=== PATIENT | female | born 1980 | race Caucasian/White ===

== ENCOUNTER 2018-09-14 00:43 | Emergency (ER) | payer SELFPAY ==
[~2018-09-14] VITALS: Ht 154.9 cm; Wt 61.2 kg
[2018-09-14 01:46] LABS: BILIRUBIN,URINE NEGATIVE (NEGATIVE); CLARITY,URINE SLIGHTLY CLOUDY; COLOR,URINE YELLOW; GLUCOSE, URINE (UA) NEGATIVE (NEGATIVE); KETONES,URINE NEGATIVE (NEGATIVE); LEUKOCYTE ESTERASE ,URINE 1+ (NEGATIVE); NITRITE,URINE NEGATIVE (NEGATIVE); PH,URINE 6.5 (5-9); PROTEIN,URINE 2+ (NEGATIVE); UROBILINOGEN,URINE NORMAL (NORMAL)
[2018-09-14 01:55] LABS: RBC,URINE >100 /HPF; WBC,URINE 0-2 /HPF
[2018-09-14 01:56] LABS: BACTERIA,URINE FEW /HPF
[2018-09-14] MEDS ORDERED: ONDANSETRON 4 MG/2 ML (SDV) Z0FRAN IVP ONE (02:15)
[2018-09-14] MEDS ORDERED: fentaNYL INJECTION 100 MCG/2 ML AMP IVP ONE (02:15)
[2018-09-14 02:34] LABS: BASOPHILS % (AUTO) 0 % (0-10); EOSINOPHILS % (AUTO) 0 % (0-10); HEMATOCRIT 32 % (35-52); HEMOGLOBIN 10.1 G/DL (11.5-16.0); LYMPHOCYTES # (AUTO) 0.8 X 10^3 (1.0-4.0); LYMPHOCYTES % (AUTO) 7 % (12-44); MEAN CORPUSCULAR HEMOGLOBIN 24 PG (25-34); MEAN CORPUSCULAR HGB CONC 32 G/DL (32-36); MEAN CORPUSCULAR VOLUME 76 FL (80-99); MEAN PLATELET VOLUME 10.3 FL (7.4-10.4); MONOCYTES # (AUTO) 0.4 X 10^3 (0.0-1.0); MONOCYTES % (AUTO) 4 % (0-12); NEUTROPHILS # (AUTO) 9.7 X 10^3 (1.8-7.8); NEUTROPHILS % (AUTO) 89 % (42-75); PLATELET COUNT 356 10^3/uL (130-400); RED CELL DISTRIBUTION WIDTH 17.4 % (10.0-14.5); WHITE BLOOD COUNT 10.9 10^3/uL (4.3-11.0)
[2018-09-14 02:51] LABS: ALANINE AMINOTRANSFERASE 25 U/L (0-55); ALBUMIN 4.2 GM/DL (3.2-4.5); ALKALINE PHOSPHATASE 90 U/L (40-136); BILIRUBIN,TOTAL 0.3 MG/DL (0.1-1.0); BUN/CREATININE RATIO 19; CALCIUM 9.4 MG/DL (8.5-10.1); CARBON DIOXIDE 22 MMOL/L (21-32); CHLORIDE 104 MMOL/L (98-107); GFR ESTIMATED > 60; GLUCOSE 122 MG/DL (70-105); LIPASE 15 U/L (8-78); POTASSIUM 3.7 MMOL/L (3.6-5.0); SODIUM 137 MMOL/L (135-145); TOTAL PROTEIN 7.7 GM/DL (6.4-8.2)
[2018-09-14 03:00] VITALS: BP 121/79
[2018-09-14] MEDS ORDERED: HOLD METFORMIN - RECEIVED CONTRAST 20 ML VIAL IV SCH (04:30)
[2018-09-14] MEDS ORDERED: IOHEXOL 350 MG/ML 100 ML (OMNIPAQUE 350) VIAL IV ONE (04:30)
[2018-09-14] MEDS ORDERED: NS 100 ML (IVPB) BAG IV ONE (04:30)
[2018-09-14 05:00] VITALS: BP 127/84
[2018-09-14 05:37] LABS: ANISOCYTOSIS SLIGHT; HYPOCHROMASIA MODERATE; LYMPHOCYTES % (MANUAL) 7 %; MICROCYTOSIS MODERATE; MONOCYTES % (MANUAL) 5 %; NEUTROPHILS % (MANUAL) 88 %
--- NOTE | 2018-09-14 06:12 | ED Abdominal Pain ---
General Chief Complaint: Abdominal/GI Problems Stated Complaint: ABD PAIN & BACK PAIN Nursing Triage Note: C/O GENERALIZED ABDOMINAL PAIN RADIATING TO LOWER BACK SINCE 1600 09/13/18. REPORTS NAUSEA AFTER DRINKING TEA. DENIES DIARRHEA/CONSTIPATION/DIFFICULTY WITH URINATION. Sepsis Screen: No Definite Risk Source of Information: Patient, Family, Try On Baster Exam Limitations: Language Barrier History of Present Illness Date Seen by Provider: Sep 14, 2018 Time Seen by Provider: 01:38 Initial Comments This 38-year-old woman presents to emergency room with complaints of nausea, vomiting, difficulty urinating, upper abdominal pain radiating through to the back, and bloating. Symptoms started at 16:00. She has had other intermittent episodes with lesser severity. Her first episode was about 3 months ago. LMP was a few days ago. She is accompanied by family members including a nephew who is bilingual. The language line was used for the majority of the interview. She denies drug or alcohol use Allergies and Home Medications Allergies Coded Allergies: No Known Drug Allergies (Unverified , 09/14/18) Home Medications Hydrocodone Bit/Acetaminophen 1 Tab Tab, 1 EACH PO Q4-6HR PRN for PAIN-MODERATE Prescribed by: LORENA LAMAS on 09/14/18 0614 Omeprazole 20 Mg Capsule.dr, 20 MG PO BID Prescribed by: LORENA LAMAS on 09/14/18 0614 Ondansetron 4 Mg Tab.rapdis, 4 MG SL Q4H PRN for NAUSEA/VOMITING Prescribed by: LORENA LAMAS on 09/14/18 0614 Patient Home Medication List Home Medication List Reviewed: Yes Review of Systems Review of Systems Constitutional: no symptoms reported EENTM: No Symptoms Reported Respiratory: No Symptoms Reported Cardiovascular: No Symptoms Reported Gastrointestinal: See HPI Genitourinary: See HPI Musculoskeletal: no symptoms reported Skin: no symptoms reported Psychiatric/Neurological: No Symptoms Reported Endocrine: No Symptoms Reported Hematologic/Lymphatic: No Symptoms Reported Past Vqolnof-Zbquca-Slaqzx Hx Past Med/Social Hx: Reviewed Nursing Past Med/Soc Hx Patient Social History Alcohol Use: Denies Use Recreational Drug Use: No Smoking Status: Never a Smoker 2nd Hand Smoke Exposure: Yes Recent Foreign Travel: No Contact w/Someone Who Travel: No Recent Infectious Disease Expo: No Recent Hopitalizations: No Immunizations Up To Date Tetanus Booster (TDap): Unknown Seasonal Allergies Seasonal Allergies: No Past Medical History Surgeries: No Respiratory: No Cardiac: No Neurological: No : No Last Menstrual Period: Sep 10, 2018 Reproductive Disorders: No Genitourinary: No Gastrointestinal: No Musculoskeletal: No Endocrine: No HEENT: No Cancer: No Psychosocial: No Integumentary: No Blood Disorders: No Physical Exam Vital Signs Vital Signs - First Documented 09/14/18 01:11 Temp 98.8 Pulse 79 Resp 18 B/P (MAP) 125/83 (97) Pulse Ox 98 O2 Delivery Room Air Capillary Refill : Less Than 3 Seconds Height/Weight/BMI Height: 5'1.00" Weight: 135lbs. oz. 61.180136dg; BMI Method:Stated General Appearance: WD/WN, moderate distress HEENT: PERRL/EOMI, normal ENT inspection, pharynx normal Neck: normal inspection Respiratory: lungs clear, normal breath sounds, no respiratory distress, no accessory muscle use Cardiovascular: regular rate, rhythm, no edema, no murmur Gastrointestinal: normal bowel sounds, soft; No distended; tenderness (Across the upper abdomen) Extremities: normal inspection, no pedal edema Back: normal inspection, no CVA tenderness Neurologic/Psychiatric: household personal assistant II-XII nml as tested, no motor/sensory deficits, alert, normal mood/affect, oriented x 3 Skin: normal color, warm/dry Progress/Results/Core Measures Results/Orders Lab Results Laboratory Tests Test 09/14/18 01:20 09/14/18 02:25 Range/Units Urine Color YELLOW Urine Clarity SLIGHTLY CLOUDY Urine pH 6.5 5-9 Urine Specific [place] 1.020 1.016-1.022 Urine Protein 2+ H NEGATIVE Urine Glucose (UA) NEGATIVE NEGATIVE Urine Ketones NEGATIVE NEGATIVE Urine Nitrite NEGATIVE NEGATIVE Urine Bilirubin NEGATIVE NEGATIVE Urine Urobilinogen NORMAL NORMAL MG/DL Urine Leukocyte Esterase 1+ H NEGATIVE Urine RBC (Auto) 5+ H NEGATIVE Urine RBC >100 H /HPF Urine WBC 0-2 /HPF Urine Squamous Epithelial Cells 5-10 /HPF Urine Crystals NONE /LPF Urine Bacteria FEW H /HPF Urine Casts NONE /LPF Urine Mucus NEGATIVE /LPF Urine Culture Indicated NO White Blood Count 10.9 4.3-11.0 10^3/uL Red Blood Count 4.21 L 4.35-5.85 10^6/uL Hemoglobin 10.1 L 11.5-16.0 G/DL Hematocrit 32 L 35-52 % Mean Corpuscular Volume 76 L 80-99 FL Mean Corpuscular Hemoglobin 24 L 25-34 PG Mean Corpuscular Hemoglobin Concent 32 32-36 G/DL Red Cell Distribution Width 17.4 H 10.0-14.5 % Platelet Count 356 130-400 10^3/uL Mean Platelet Volume 10.3 7.4-10.4 FL Neutrophils (%) (Auto) 89 H 42-75 % Lymphocytes (%) (Auto) 7 L 12-44 % Monocytes (%) (Auto) 4 0-12 % Eosinophils (%) (Auto) 0 0-10 % Basophils (%) (Auto) 0 0-10 % Neutrophils # (Auto) 9.7 H 1.8-7.8 X 10^3 Lymphocytes # (Auto) 0.8 L 1.0-4.0 X 10^3 Monocytes # (Auto) 0.4 0.0-1.0 X 10^3 Eosinophils # (Auto) 0.0 0.0-0.3 10^3/uL Basophils # (Auto) 0.0 0.0-0.1 10^3/uL Neutrophils % (Manual) 88 % Lymphocytes % (Manual) 7 % Monocytes % (Manual) 5 % Hypochromasia MODERATE Anisocytosis SLIGHT Microcytosis MODERATE Sodium Level 137 135-145 MMOL/L Potassium Level 3.7 3.6-5.0 MMOL/L Chloride Level 104 98-107 MMOL/L Carbon Dioxide Level 22 21-32 MMOL/L Anion Gap 11 5-14 MMOL/L Blood Urea Nitrogen 13 7-18 MG/DL Creatinine 0.70 0.60-1.30 MG/DL Estimat Glomerular Filtration Rate > 60 BUN/Creatinine Ratio 19 Glucose Level 122 H 70-105 MG/DL Calcium Level 9.4 8.5-10.1 MG/DL Corrected Calcium 9.2 8.5-10.1 MG/DL Total Bilirubin 0.3 0.1-1.0 MG/DL Aspartate Amino Transf (AST/SGOT) 22 5-34 U/L Alanine Aminotransferase (ALT/SGPT) 25 0-55 U/L Alkaline Phosphatase 90 40-136 U/L Total Protein 7.7 6.4-8.2 GM/DL Albumin 4.2 3.2-4.5 GM/DL Lipase 15 8-78 U/L Serum Test, Qualitative NEGATIVE NEGATIVE My Orders Orders - LORENA POWER MD Ua Culture If Indicated (09/14/18 01:40) Cbc With Automated Diff (09/14/18 02:14) Comprehensive Metabolic Panel (09/14/18 02:14) Lipase (09/14/18 02:14) Ed Iv/Invasive Line Start (09/14/18 02:14) Fentanyl Injection (Sublimaze Injection (09/14/18 02:15) Ondansetron Injection (Zofran Injectio (09/14/18 02:15) Manual Differential (09/14/18 02:25) Hcg,Qualitative Serum (09/14/18 03:10) Ct Abdomen/Pelvis W (09/14/18 03:11) Iohexol Injection (Omnipaque 350 Mg/Ml 1 (09/14/18 04:30) Received Contrast (Hold Metformin- Contr (09/14/18 04:30) Ns (Ivpb) (Sodium Chloride 0.9% Ivpb Bag (09/14/18 04:30) Medications Given in ED Vital Signs/I&O 09/14/18 09/14/18 09/14/18 09/14/18 01:11 03:00 05:00 06:21 Temp 98.8 97.8 Pulse 79 68 61 75 Resp 18 16 18 18 B/P (MAP) 125/83 (97) 121/79 (93) 127/84 (98) 115/74 (88) Pulse Ox 98 99 100 97 O2 Delivery Room Air Room Air Room Air Room Air Blood Pressure Mean: 98 Progress Progress Note : Progress Note Patient's pain and nausea was treated successfully. CT scan was obtained with finding of a complex right renal mass suspicious for renal cell carcinoma. Case was discussed with Dr. Townsend who recommended prompt follow-up in the clinic and referral to [facility] for primary care as well. I obtained from #from patient's family which are as follows [phone] and [phone]. Diagnostic Imaging Diagonstic Imaging: CT Plain Films/CT/US/NM/MRI: abdomen, pelvis Comments CT abdomen and pelvis viewed by me. [facility] report reviewed. There is a complex solid mass of the right kidney suspicious for renal cell carcinoma. Departure Impression Primary Impression: Upper abdominal pain Additional Impressions: Nausea and vomiting Qualified Codes: R11.2 - Nausea with vomiting, unspecified Right kidney mass Disposition: 01 HOME, SELF-CARE Condition: Improved Departure-Patient Inst. Decision time for Depature: 05:30 Referrals: [facility] [place] TEJAS TOWNSEND NO,LOCAL PHYSICIAN (PCP) Primary Care Physician Patient Instructions: Acute Abdomen (Belly Pain), Adult (DC), Kidney Cancer Add. Discharge Instructions: Start with a clear liquid diet and gradually advance your diet as tolerated. Follow-up with Dr. Townsend at the [facility] as soon as possible. Please call early Sunday morning to arrange follow-up. Please also schedule follow-up with [place] [facility] [place] [facility] [place]. Use hydrocodone as prescribed for pain and use Zofran as prescribed for nausea and vomiting. Return to the emergency room if you have problems or concerns All discharge instructions reviewed with patient and/or family. Voiced understanding. Scripts Omeprazole (Omeprazole) 20 Mg Capsule.dr 20 MG PO BID, #30 CAP Prov: LORENA POWER MD 09/14/18 Ondansetron (Ondansetron Odt) 4 Mg Tab.rapdis 4 MG SL Q4H PRN for NAUSEA/VOMITING, #10 TAB Prov: LORENA POWER MD 09/14/18 Hydrocodone Bit/Acetaminophen (Hydrocodone/Acetaminophen 5/325mg Tablet) 1 Tab Tab 1 EACH PO Q4-6HR PRN for PAIN-MODERATE MDD 10, #10 TAB Prov: LORENA POWER MD 09/14/18 Copy Copies To 1: TEJAS TOWNSEND Copies To 2: MAGALIS GARCES JOSHUA T MD Sep 14, 2018 06:12
[2018-09-14] MEDS ORDERED: ACHD5005 PO (06:14)
[2018-09-14] MEDS ORDERED: OMEP20CA12 PO (06:14)
[2018-09-14] MEDS ORDERED: ONDA4TAB11 SL (06:14)
[2018-09-14 06:21] VITALS: BP 115/74
--- NOTE | 2018-09-14 06:50 | Diagnostic Imaging Report ---
PROCEDURE: CT abdomen and pelvis with contrast. TECHNIQUE: Multiple contiguous axial images were obtained through the abdomen and pelvis after administration of intravenous contrast. Auto Exposure Controls were utilized during the CT exam to meet ALARA standards for radiation dose reduction. INDICATION: Abdominal pain radiating to back with nausea. No prior examinations are available for comparison. Findings: The heart size is normal. The lung bases are clear. The liver is normal in size without focal lesions. There is cholelithiasis. There is no biliary ductal dilatation. Spleen is normal. Pancreas and adrenal glands are unremarkable. There is a complex solid mass in the inferior aspect of the right kidney measuring 4 cm. The left kidney is normal. Aorta is nonaneurysmal. Bowel gas pattern is nonspecific. There is no free air. There is no ascites. No focal inflammatory changes. Bladder is normal. The osseous structures are unremarkable. Impression: 4 cm complex solid mass in the right kidney. This should be considered renal cell carcinoma until proven otherwise. Cholelithiasis No other acute abnormality in the abdomen or pelvis. Dictated by: Dictated on workstation # [id number]
== END 2018-09-14 06:23 | disposition home or self-care (01) ==
LOC: ER 00:48
DX: N28.89 Other specified disorders of kidney and ureter (principal); R11.2 Nausea with vomiting, unspecified; Z77.22 Contact with and (suspected) exposure to environmental tobacco smoke (acute) (chronic)
CPT/HCPCS: 36415; 74177; 80053; 81000; 83690; 84703; 85007; 85027; 96374; 96375

== ENCOUNTER 2018-09-21 23:56 | Emergency (ER) | payer SELFPAY ==
[~2018-09-21] VITALS: Ht 144.8 cm; Wt 63.5 kg
[~2018-09-21 23:56] MED LIST: ACHD5005 PO; OMEP20CA12 PO; ONDA4TAB11 SL
[2018-09-22] MEDS ORDERED: LACTATED RINGERS 1,000 ML IV ONE (01:14)
[2018-09-22] MEDS ORDERED: ONDANSETRON 4 MG/2 ML (SDV) Z0FRAN IVP ONE ×2 (01:15→03:15)
[2018-09-22 01:34] LABS: BILIRUBIN,URINE NEGATIVE (NEGATIVE); CLARITY,URINE VERY CLOUDY; COLOR,URINE YELLOW; GLUCOSE, URINE (UA) NEGATIVE (NEGATIVE); KETONES,URINE NEGATIVE (NEGATIVE); LEUKOCYTE ESTERASE ,URINE 2+ (NEGATIVE); NITRITE,URINE NEGATIVE (NEGATIVE); PH,URINE 6 (5-9); PROTEIN,URINE 1+ (NEGATIVE); UROBILINOGEN,URINE 1 MG/DL (NORMAL)
[2018-09-22 01:36] LABS: BASOPHILS % (AUTO) 0 % (0-10); EOSINOPHILS # (AUTO) 0.1 10^3/uL (0.0-0.3); EOSINOPHILS % (AUTO) 1 % (0-10); HEMATOCRIT 31 % (35-52); HEMOGLOBIN 9.9 G/DL (11.5-16.0); LYMPHOCYTES # (AUTO) 1.6 X 10^3 (1.0-4.0); LYMPHOCYTES % (AUTO) 16 % (12-44); MEAN CORPUSCULAR HEMOGLOBIN 24 PG (25-34); MEAN CORPUSCULAR HGB CONC 32 G/DL (32-36); MEAN CORPUSCULAR VOLUME 76 FL (80-99); MEAN PLATELET VOLUME 10.6 FL (7.4-10.4); MONOCYTES # (AUTO) 0.9 X 10^3 (0.0-1.0); MONOCYTES % (AUTO) 9 % (0-12); NEUTROPHILS # (AUTO) 7.1 X 10^3 (1.8-7.8); NEUTROPHILS % (AUTO) 73 % (42-75); PLATELET COUNT 291 10^3/uL (130-400); RED CELL DISTRIBUTION WIDTH 16.9 % (10.0-14.5); WHITE BLOOD COUNT 9.7 10^3/uL (4.3-11.0)
[2018-09-22 01:48] LABS: BACTERIA,URINE TRACE /HPF; SQUAMOUS EPITHELIAL CELL,UR 25-50 /HPF; WBC,URINE 0-2 /HPF
[2018-09-22 02:01] LABS: ALANINE AMINOTRANSFERASE 20 U/L (0-55); ALBUMIN 4.1 GM/DL (3.2-4.5); ALKALINE PHOSPHATASE 87 U/L (40-136); AMYLASE 54 U/L (25-125); BILIRUBIN,TOTAL 0.2 MG/DL (0.1-1.0); BUN/CREATININE RATIO 22; CALCIUM 9.2 MG/DL (8.5-10.1); CARBON DIOXIDE 20 MMOL/L (21-32); CHLORIDE 106 MMOL/L (98-107); CREATININE SERUM 0.73 MG/DL (0.60-1.30); GFR ESTIMATED > 60; GLUCOSE 126 MG/DL (70-105); LIPASE 29 U/L (8-78); POTASSIUM 3.7 MMOL/L (3.6-5.0); SODIUM 137 MMOL/L (135-145); TOTAL PROTEIN 7.5 GM/DL (6.4-8.2)
[2018-09-22] MEDS ORDERED: KETOROLAC 30 MG/ML VIAL IVP STA (02:04)
[2018-09-22] MEDS ORDERED: NS IV 1000 ML 1,000 ML ONE (03:09)
[2018-09-22] MEDS ORDERED: NS IV 1000 ML 1,000 ML IV ONE (03:14)
[2018-09-22] MEDS ORDERED: PROMETHAZINE INJ 25 MG/ML (PHENERGAN) AMP IVP ONE ×2 (03:15→03:45)
[2018-09-22] MEDS ORDERED: diphenhydrAMINE 50 MG/ML INJ (BENADRYL) IVP ONE (03:15)
[2018-09-22] MEDS ORDERED: SCOPOLAMINE 1.5 MG (TRANSDERM-SCOP) PATCH TD ONE (03:45)
--- NOTE | 2018-09-22 03:50 | NUR ---
Scapolamine patch placed behind lt ear.
[2018-09-22] MEDS ORDERED: RX-ONDANSETRON 4 MG ODT (ZOFRAN) PPK #4 PO STA (04:17)
[2018-09-22] MEDS ORDERED: RX-HYOSCYAMINE 0.125 MG SL (LEVSIN) PPK#6 SL STA (04:17)
--- NOTE | 2018-09-22 04:25 | ED Abdominal Pain ---
General Chief Complaint: Abdominal/GI Problems Stated Complaint: KIDNEY PAIN Nursing Triage Note: ABDOMINAL THAT STARTED AT 2100 AND HAS INCREASINGLY GOTTEN WORSE. Sepsis Screen: No Definite Risk Source of Information: Patient (VIA NURSING SURGICAL SERVICES DIRECTOR), Radiochemical Technician (FAMILY MEMBER IS NURSING SURGICAL SERVICES DIRECTOR) Exam Limitations: Language Barrier (PT DOES NOT SPEAK [place]) History of Present Illness Date Seen by Provider: Sep 22, 2018 Time Seen by Provider: 01:15 Initial Comments PT ARRIVES VIA POV FROM HOME C/O GENERALIZED ABDOMINAL PAIN THAT GOES AROUND TO HER BACK--ALL OVER HER BACK PT STATES PAIN BEGAN AT 2100 TONIGHT AND IS CONSTANT C/O NAUSEA, NO VOMITING--ATE CAKE AND MILK TODAY NO DIARRHEA, HAD A NORMAL BM TODAY NO FEVER NO PROBLEMS URINATING HAS HAD THIS PAIN OFF AND ON FOR THE PAST FEW MONTHS, , AND WAS SEEN HERE 09/14/18 FOR THIS SAME PROBLEM--WAS DX WITH RENAL MASS, GIVEN RX'S FOR ZOFRAN, OMEPRAZOLE AND HYDROCODONE, AND WAS REFERRED TO DR. HAUSER FOLLOWED UP WITH [facility], BUT NO ADDITIONAL TESTS DONE HAS NOT ATTEMPTED TO FOLLOW UP WITH DR. HAUSER ADVISED AT LAST ER VISIT LMP 2 WEEKS AGO, NORMAL, NO CONTROL Allergies and Home Medications Allergies Coded Allergies: No Known Drug Allergies (Unverified , 09/14/18) Home Medications Dicyclomine HCl 20 Mg Tablet, 20 MG PO Q6H Prescribed by: TAJ WOODSON on 09/22/18427 Hydrocodone Bit/Acetaminophen 1 Tab Tab, 1 EACH PO Q4-6HR PRN for PAIN-MODERATE Prescribed by: LORENA LAMAS on 09/14/18613 Hyoscyamine Sulfate 0.125 Mg Tab.subl, 1-2 TAB SL Q4H Prescribed by: TAJ WOODSON on 09/22/18427 Omeprazole 20 Mg Capsule.dr, 20 MG PO BID Prescribed by: LORENA LAMAS on 09/14/18613 Ondansetron 4 Mg Tab.rapdis, 4 MG SL Q4H PRN for NAUSEA/VOMITING Prescribed by: LORENA LAMAS on 09/14/18613 Ondansetron 8 Mg Tab.rapdis, 8 MG PO Q6H Prescribed by: TAJ WOODSON on 09/22/18427 Promethazine HCl 25 Mg Supp.rect, 25 MG RC Q4H Prescribed by: TAJ WOODSON on 09/22/18 0428 Patient Home Medication List Home Medication List Reviewed: Yes Review of Systems Review of Systems Constitutional: No fever Respiratory: No Symptoms Reported; Denies Shortness of Air Cardiovascular: No Symptoms Reported; Denies Chest Pain Gastrointestinal: See HPI, Abdominal Pain; Denies Constipated, Denies Diarrhea; Nausea Genitourinary: No Symptoms Reported Musculoskeletal: see HPI, back pain Skin: no symptoms reported Psychiatric/Neurological: No Symptoms Reported Endocrine: No Symptoms Reported Hematologic/Lymphatic: No Symptoms Reported Past Hbcmlxx-Ozfqed-Onvkak Hx Patient Social History Alcohol Use: Denies Use Recreational Drug Use: No Smoking Status: Never a Smoker 2nd Hand Smoke Exposure: Yes Recent Foreign Travel: No Contact w/Someone Who Travel: No Recent Infectious Disease Expo: No Recent Hopitalizations: No Physical Abuse: No Sexual Abuse: No Mistreated: No Fear: No Immunizations Up To Date Tetanus Booster (TDap): Unknown Seasonal Allergies Seasonal Allergies: No Past Medical History Surgeries: No Respiratory: No Cardiac: No Neurological: No : No Reproductive Disorders: No Genitourinary: Yes (RIGHT RENAL MASS NOTED ON CT 09/14/18) Gastrointestinal: Yes (GALLSTONES NOTED ON CT 09/22/18) Musculoskeletal: No Endocrine: No HEENT: No Cancer: No Psychosocial: No Integumentary: No Blood Disorders: No Family Medical History Hypertension 19 FATHER Physical Exam Vital Signs Vital Signs - First Documented 09/22/18 01:32 Temp 97.2 Pulse 109 Resp 18 B/P (MAP) 141/80 (100) Pulse Ox 99 O2 Delivery Room Air Capillary Refill : Less Than 3 Seconds Height/Weight/BMI Height: 4'9.00" Weight: 140lbs. oz. 63.749873ih; BMI Method:Stated General Appearance: WD/WN, other (DRAMATIC, MOANING, DOES NOT OPEN EYES. ) Respiratory: normal breath sounds, no respiratory distress, no accessory muscle use Cardiovascular: regular rate, rhythm, no murmur Gastrointestinal: normal bowel sounds, soft, no organomegaly, no pulsatile mass; No distended, No guarding, No rebound; tenderness (DIFFUSE ABDOMINAL TENDERNESS); No hernia, No mass Extremities: normal inspection, no pedal edema, no calf tenderness, normal capillary refill Back: no vertebral tenderness, CVA tenderness (R), CVA tenderness (L) Neurologic/Psychiatric: inside upholsterer II-XII nml as tested, no motor/sensory deficits, alert, oriented x 3 Skin: normal color, warm/dry; No rash Progress/Results/Core Measures Results/Orders Lab Results Laboratory Tests Test 09/22/18 01:21 09/22/18 01:26 Range/Units White Blood Count 9.7 4.3-11.0 10^3/uL Red Blood Count 4.12 L 4.35-5.85 10^6/uL Hemoglobin 9.9 L 11.5-16.0 G/DL Hematocrit 31 L 35-52 % Mean Corpuscular Volume 76 L 80-99 FL Mean Corpuscular Hemoglobin 24 L 25-34 PG Mean Corpuscular Hemoglobin Concent 32 32-36 G/DL Red Cell Distribution Width 16.9 H 10.0-14.5 % Platelet Count 291 130-400 10^3/uL Mean Platelet Volume 10.6 H 7.4-10.4 FL Neutrophils (%) (Auto) 73 42-75 % Lymphocytes (%) (Auto) 16 12-44 % Monocytes (%) (Auto) 9 0-12 % Eosinophils (%) (Auto) 1 0-10 % Basophils (%) (Auto) 0 0-10 % Neutrophils # (Auto) 7.1 1.8-7.8 X 10^3 Lymphocytes # (Auto) 1.6 1.0-4.0 X 10^3 Monocytes # (Auto) 0.9 0.0-1.0 X 10^3 Eosinophils # (Auto) 0.1 0.0-0.3 10^3/uL Basophils # (Auto) 0.0 0.0-0.1 10^3/uL Sodium Level 137 135-145 MMOL/L Potassium Level 3.7 3.6-5.0 MMOL/L Chloride Level 106 98-107 MMOL/L Carbon Dioxide Level 20 L 21-32 MMOL/L Anion Gap 11 5-14 MMOL/L Blood Urea Nitrogen 16 7-18 MG/DL Creatinine 0.73 0.60-1.30 MG/DL Estimat Glomerular Filtration Rate > 60 BUN/Creatinine Ratio 22 Glucose Level 126 H 70-105 MG/DL Calcium Level 9.2 8.5-10.1 MG/DL Corrected Calcium 9.1 8.5-10.1 MG/DL Total Bilirubin 0.2 0.1-1.0 MG/DL Aspartate Amino Transf (AST/SGOT) 16 5-34 U/L Alanine Aminotransferase (ALT/SGPT) 20 0-55 U/L Alkaline Phosphatase 87 40-136 U/L Total Protein 7.5 6.4-8.2 GM/DL Albumin 4.1 3.2-4.5 GM/DL Amylase Level 54 25-125 U/L Lipase 29 8-78 U/L Serum Test, Qualitative NEGATIVE NEGATIVE Urine Color YELLOW Urine Clarity VERY CLOUDY H Urine pH 6 5-9 Urine Specific [place] 1.025 H 1.016-1.022 Urine Protein 1+ H NEGATIVE Urine Glucose (UA) NEGATIVE NEGATIVE Urine Ketones NEGATIVE NEGATIVE Urine Nitrite NEGATIVE NEGATIVE Urine Bilirubin NEGATIVE NEGATIVE Urine Urobilinogen 1 NORMAL MG/DL Urine Leukocyte Esterase 2+ H NEGATIVE Urine RBC (Auto) NEGATIVE NEGATIVE Urine RBC NONE /HPF Urine WBC 0-2 /HPF Urine Squamous Epithelial Cells 25-50 H /HPF Urine Crystals NONE /LPF Urine Bacteria TRACE /HPF Urine Casts NONE /LPF Urine Mucus SMALL H /LPF Urine Culture Indicated NO My Orders Orders - TAJ WOODSON DO Ed Iv/Invasive Line Start (09/22/18 01:14) Monitor-Rhythm Ecg Trace Only (09/22/18 01:14) Amylase (09/22/18 01:14) Cbc With Automated Diff (09/22/18 01:14) Comprehensive Metabolic Panel (09/22/18 01:14) Hcg,Qualitative Serum (09/22/18 01:14) Lipase (09/22/18 01:14) Ua Culture If Indicated (09/22/18 01:14) Ed Iv/Invasive Line Start (09/22/18 01:14) Lactated Ringers (Lr 1000 Ml Iv Solution (09/22/18 01:14) Ondansetron Injection (Zofran Injectio (09/22/18 01:15) Ct Abdomen/Pelvis W (09/22/18 02:04) Acute Abd Series (09/22/18 02:04) Ketorolac Injection (Toradol Injection) (09/22/18 02:04) Ondansetron Injection (Zofran Injectio (09/22/18 03:15) Promethazine Injection (Phenergan Injec (09/22/18 03:15) Diphenhydramine Injection (Benadryl Inje (09/22/18 03:15) Ed Iv/Invasive Line Start (09/22/18 03:14) Ns Iv 1000 Ml (Sodium Chloride 0.9%) (09/22/18 03:14) Ns Iv 1000 Ml (Sodium Chloride 0.9%) (09/22/18 03:09) Promethazine Injection (Phenergan Injec (09/22/18 03:45) Scopolamine Patch (Transderm-Scop Patch) (09/22/18 03:45) Hyoscyamine Sl Tablet (Levsin Sl Tablet) (09/22/18 04:30) Dicyclomine Injection (Bentyl Injection) (09/22/18 04:30) Rx-Hyoscyamine Tab (Rx-Levsin Sl) (09/22/18 04:17) Rx-Ondansetron Po (Rx-Zofran Po) (09/22/18 04:17) Medications Given in ED Current Medications Medications Dose Ordered Sig/Alana Route Start Time Stop Time Status Last Admin Dose Admin Diphenhydramine HCl 25 mg ONCE ONCE IVP 09/22/18 03:15 09/22/18 03:16 DC 09/22/18 03:22 25 MG Lactated Ringer's 1,000 ml @ 0 mls/hr Q0M ONCE IV 09/22/18 01:14 09/22/18 01:17 DC 09/22/18 01:29 999 MLS/HR Ondansetron HCl 4 mg ONCE ONCE IVP 09/22/18 01:15 09/22/18 01:17 DC 09/22/18 01:29 4 MG Ondansetron HCl 8 mg ONCE ONCE IVP 09/22/18 03:15 09/22/18 03:16 DC 09/22/18 03:22 8 MG Promethazine HCl 25 mg ONCE ONCE IVP 09/22/18 03:15 09/22/18 03:16 DC 09/22/18 03:22 25 MG Promethazine HCl 25 mg ONCE ONCE IVP 09/22/18 03:45 09/22/18 03:46 DC 09/22/18 03:50 25 MG Scopolamine 1.5 mg ONCE ONCE TD 09/22/18 03:45 09/22/18 03:46 DC 09/22/18 03:50 1.5 MG Sodium Chloride 1,000 ml @ 0 mls/hr Q0M ONCE IV 09/22/18 03:14 09/22/18 03:16 DC 09/22/18 03:22 0 MLS/HR Vital Signs/I&O 09/22/18 01:32 Temp 97.2 Pulse 109 Resp 18 B/P (MAP) 141/80 (100) Pulse Ox 99 O2 Delivery Room Air Blood Pressure Mean: 100 Progress Progress Note : Progress Note PT VOMITED ON RETURN FROM XRAY DEPT--GIVEN ZOFRAN, SCOPOLAMINE, PHENERGAN AND BENADRYL--NAUSEA IMPROVED AND NO FURTHER VOMITING GIVEN TORADOL, LEVSIN AND BENTYL FOR PAIN, WITH IMPROVEMENT IN SYMPTOMS NO DETERIORATION IN PT'S CONDITION DURING ER STAY Diagnostic Imaging Comments ABDOMEN XRAYS--MODERATE AMOUNT OF STOOL IN COLON, PENDING RADIOLOGIST REVIEW CT ABDOMEN/PELVIS--CHOLELITHIASIS, RIGHT RENAL MASS UNCHANGED, NO ACUTE PROCESS--PER [facility] VIA FAX AT 8080 Reviewed: Reviewed by Me Departure Impression Primary Impression: Abdominal pain Additional Impressions: Cholelithiasis Right renal mass Disposition: HOME, SELF-CARE Condition: Improved Departure-Patient Inst. Referrals: TEREZA TRINH MD,HUSSEIN ALEMAN MD [facility] [place] Patient Instructions: Acute Abdomen (Belly Pain), Adult (DC), Gallstones (DC), Kidney Cancer Add. Discharge Instructions: TAKE OMEPRAZOLE DAILY FOR YOUR STOMACH TAKE HYDROCODONE NEEDED FOR PAIN LOTS OF CLEAR LIQUIDS--WATER, BROTH, JELLO, GATORADE---NO FOOD UNTIL YOUR NAUSEA AND PAIN ARE GONE WHEN YOU ARE FEELING BETTER, ADD BRATS DIET TO CLEAR LIQUIDS--BANANAS, RICE, APPLESAUCE, TOAST, SALTINES FOLLOW UP WITH DR. HAUSER, ONCOLOGIST ( CANCER DOCTOR, FOR SUSPECTED CANCER OF YOUR KIDNEY FOLLOW UP WITH DR. MAC, UROLOGIST (BLADDER AND KIDNEY SPECIALIST AND SURGEON ) , FOR SUSPECTED CANCER OF YOUR KIDNEY FOLLOW UP WITH DR. TRINH, GENERAL SURGEON, FOR YOUR GALLSTONES / STONES IN YOUR GALLBLADDER All discharge instructions reviewed with patient and/or family. Voiced understanding. Scripts Ondansetron (Ondansetron Odt) 8 Mg Tab.rapdis 8 MG PO Q6H for Nausea/Vomiting, #10 TAB Prov: TAJ WOODSON DO 09/22/18 Promethazine HCl (Phenergan) 25 Mg Supp.rect 25 MG RC Q4H for Nausea/Vomiting, #10 SUPP.RECT Prov: TAJ WOODSON DO 09/22/18 Hyoscyamine Sulfate (Levsin-Sl) 0.125 Mg Tab.subl 1-2 TAB SL Q4H for Abdominal Pain, #15 TAB Prov: TAJ WOODSON DO 09/22/18 Dicyclomine HCl (Dicyclomine HCl) 20 Mg Tablet 20 MG PO Q6H for Abdominal Pain, #20 TAB Prov: TAJ WOODSON DO 09/22/18 TAJ WOODSON DO Sep 22, 2018 04:25
[2018-09-22] MEDS ORDERED: HYOS0.1283 SL (04:28)
[2018-09-22] MEDS ORDERED: PROM25SU43 RC (04:28)
[2018-09-22] MEDS ORDERED: DICY20TA10 PO (04:28)
[2018-09-22] MEDS ORDERED: ONDA8TAB13 PO (04:28)
[2018-09-22] MEDS ORDERED: DICYCLOMINE 10 MG/ML (BENTYL) 2 ML AMP IM ONE (04:30)
[2018-09-22] MEDS ORDERED: HYOSCYAMINE 0.125 MG (LEVSIN) TAB PO ONE (04:30)
[2018-09-22 05:05] VITALS: BP 136/89
--- NOTE | 2018-09-22 05:05 | NUR ---
D/C instructions reviewed with family using son as box coverer hand. Pt and family voices no further questions or concerns @ this time.
--- NOTE | 2018-09-22 09:26 | Diagnostic Imaging Report ---
PROCEDURE: CT abdomen and pelvis with contrast. TECHNIQUE: Multiple contiguous axial images were obtained through the abdomen and pelvis after administration of intravenous contrast. Auto Exposure Controls were utilized during the CT exam to meet ALARA standards for radiation dose reduction. INDICATION: Flank pain. COMPARISON: 09/14/2018. DISCUSSION: The lung bases are well-aerated. Normal heart size. No pleural or pericardial fluid. Fatty infiltration of the liver is again noted. Cholelithiasis is present, stable. No secondary inflammatory changes identified. The stomach, pancreas, spleen, and adrenal glands are unremarkable. 4.5 x 3.3 cm mass shows diffuse enhancement within the right kidney inferiorly and is unchanged. Again this should be considered malignant. No hydronephrosis or renal stone otherwise. No adjacent adenopathy. The hepatic vein appears patent on the right. Suspect normal follicular activity within the bilateral ovaries. The uterus and urinary bladder are unremarkable. The aorta is normal in caliber. The large and small bowel loops appear within normal limits. No evidence for appendicitis. No osseous abnormality. Normal heart size. Impression: 1. Right renal mass, stable. Mass should be considered malignant. 2. Fatty infiltration of the liver and cholelithiasis, stable. No new abnormality identified. 3. Agree with preliminary report. Dictated by: Dictated on workstation # [id number]
--- NOTE | 2018-09-22 09:27 | Diagnostic Imaging Report ---
INDICATION: Abdominal pain. COMPARISON: None. DISCUSSION: AP view of the chest and supine and upright views of the abdomen were obtained. The heart and lungs are normal. No osseous abnormality or pathologic calcification. Mild constipation. No obstruction, pneumatosis, or pneumoperitoneum. IMPRESSION: 1. Mild constipation. Dictated by: Dictated on workstation # [id number]
== END 2018-09-22 05:10 | disposition home or self-care (01) ==
LOC: EDUNIT# 23:56 → ER 09-22 00:01
DX: K80.20 Calculus of gallbladder without cholecystitis without obstruction (principal); N28.89 Other specified disorders of kidney and ureter; Z77.22 Contact with and (suspected) exposure to environmental tobacco smoke (acute) (chronic); Z82.49 Family history of ischemic heart disease and other diseases of the circulatory system
CPT/HCPCS: 36415; 74022; 74177; 80053; 81000; 82150; 83690; 84703; 85025; 93041

== ENCOUNTER 2020-11-04 09:28 | Outpatient (RCR) | payer BC, OTHER ==
[~2020-11-04 09:28] MED LIST changes: +DICY20TA PO; +HYOS0.1283 SL; -OMEP20CA12 PO; +OMEP20CA18 PO; +ONDA8TAB13 PO; +PROM25SU43 RC
[2020-11-04 09:46] LABS: BASOPHILS % (AUTO) 0 % (0-10); EOSINOPHILS # (AUTO) 0.2 10^3/uL (0.0-0.3); EOSINOPHILS % (AUTO) 2 % (0-10); HEMATOCRIT 29 % (35-52); HEMOGLOBIN 8.2 g/dL (11.5-16.0); LYMPHOCYTES # (AUTO) 1.6 10^3/uL (1.0-4.0); LYMPHOCYTES % (AUTO) 18 % (12-44); MEAN CORPUSCULAR HEMOGLOBIN 19 pg (25-34); MEAN CORPUSCULAR HGB CONC 28 g/dL (32-36); MEAN CORPUSCULAR VOLUME 69 fL (80-99); MEAN PLATELET VOLUME 10.3 fL (9.0-12.2); MONOCYTES # (AUTO) 0.7 10^3/uL (0.0-1.0); MONOCYTES % (AUTO) 8 % (0-12); NEUTROPHILS # (AUTO) 6.6 10^3/uL (1.8-7.8); NEUTROPHILS % (AUTO) 72 % (42-75); PLATELET COUNT 366 10^3/uL (130-400); WHITE BLOOD COUNT 9.2 10^3/uL (4.3-11.0)
[2020-11-04 10:13] LABS: ALBUMIN 3.9 GM/DL (3.2-4.5); BILIRUBIN,TOTAL 0.2 MG/DL (0.1-1.0); CALCIUM 8.9 MG/DL (8.5-10.1); CREATININE SERUM 0.76 MG/DL (0.60-1.30); POTASSIUM 3.8 MMOL/L (3.6-5.0); TOTAL PROTEIN 7.3 GM/DL (6.4-8.2)
[2020-12-10] MEDS ORDERED: ASCO500C17 PO (15:00)
== END 2021-02-02 | disposition home or self-care (01) ==
LOC: ONC 09:28
PROVIDERS: ATTEND Internal Medicine Hematology & Oncology
DX: C64.1 Malignant neoplasm of right kidney, except renal pelvis (principal); D50.0 Iron deficiency anemia secondary to blood loss (chronic); Z90.5 Acquired absence of kidney
CPT/HCPCS: 80053; 85025; G0463; 99214

== ENCOUNTER → 2020-11-09 | Outpatient (CLI) | payer BC ==
[~2020-11-09] MED LIST changes: -DICY20TA PO; +DICY20TA10 PO
--- NOTE | 2020-11-09 14:18 | Diagnostic Imaging Report ---
PROCEDURE: CT abdomen and pelvis without contrast. TECHNIQUE: Multiple contiguous axial images were obtained through the abdomen and pelvis without the use of intravenous contrast. Auto Exposure Controls were utilized during the CT exam to meet ALARA standards for radiation dose reduction. INDICATION: Right lower quadrant abdominal pain. COMPARISON: Correlation is made with the prior CT from 09/22/2018. FINDINGS: The lung bases are clear. The liver is unremarkable. The gallbladder appears to be surgically absent. There is no biliary ductal dilatation. The pancreas and spleen are unremarkable. No adrenal mass is identified. The patient has undergone a right nephrectomy since the prior CT. No residual or recurrent tumor in the right renal bed is identified. The left kidney is unremarkable. The aorta is nonaneurysmal. The small and large bowel loops are of normal caliber. The appendix is unremarkable. There is no inflammatory stranding present. No free fluid or fluid collection is identified. The bladder is decompressed. The uterus is unremarkable. IMPRESSION: 1. Status post right nephrectomy. No residual or recurrent neoplasm is identified. 2. No acute feature in the abdomen or pelvis is identified. Dictated by: Dictated on workstation # [id number]
== END ==
LOC: RAD 12:45
PROVIDERS: ATTEND Urology
DX: R31.0 Gross hematuria (principal); Z90.5 Acquired absence of kidney
CPT/HCPCS: 74176

== ENCOUNTER → 2020-12-10 | Outpatient (CLI) | payer BC ==
[~2020-12-10] VITALS: Ht 144.8 cm; Wt 60.8 kg
[~2020-12-10] MED LIST changes: +ASCO500C17 PO
== END | disposition home or self-care (01) ==
LOC: PREOP 06:54
PROVIDERS: ATTEND Surgery
DX: Z01.818 Encounter for other preprocedural examination (principal)

== ENCOUNTER 2020-12-15 12:11 | Day surgery (SDC) | payer BC ==
[2020-12-15] VITALS (12 sets, daily range): BP systolic 110–146; BP diastolic 57–100
[~2020-12-15] VITALS: Ht 144.8 cm; Wt 60.8 kg
--- OUTSIDE RECORDS SUMMARY | 2020-12-15 12:14 | XMS REPORT | Clinical Summary ---
Author Author [facility] Organization [facility] Address Unknown Phone Unavailable Care Team Providers Care Brake Machine Operator Name Role Phone PCP Unavailable Allergies No Known Active Allergies Medications End Date Status Medication Sig Dispensed Refills Start Date Active HYDROcodone-acetaminophen TAKE 1 TABLET 0 07/2 0/201 (NORCO) 5-325 mg per BY MOUTH 9 tablet EVERY 4 TO 6 HOURS NEEDED FOR MODERATE PAIN Active omeprazole (PRILOSEC) 20 Take 20 mg by 0 07/20 /201 MG capsule mouth 2 (two) 9 times a day. Active ondansetron (ZOFRAN-ODT) DISSOLVE 1 0 07/20 /201 4 MG disintegrating TABLET IN 9 tablet MOUTH EVERY 4 HOURS NEEDED FOR NAUSEA AND VOMITING Active Problems Not on file Social History Date Tobacco Use Types Packs/Day Years Used Never Smoker Smokeless Tobacco: Never Used Comments Alcohol Use Standard Drinks/Week Never 0 (1 standard drink = 0.6 o z pure alcohol) Alcohol Habits Answer Date Recorded How often do you have a drink containing alcohol? Never 10/07/2018 How many drinks containing alcohol do you have on No t asked a typical day when you are drinking? How often do you have six or more drinks on one Not asked occasion? Sex Assigned at Date Recorded Not on file Last Filed Vital Signs Reading Time Taken Comments Vital Sign 123/83 10/07/2018 11:27 AM CDT Blood Pressure 85 10/07/2018 11:27 AM CDT Pulse 37 C (98.6 F) 10/07/2018 10:57 AM CDT Temperature 13 10/07/2018 11:27 AM CDT Respiratory Rate 97% 10/07/2018 11:27 AM CDT Oxygen Saturation - - Inhaled Oxygen Concentration 63.5 kg (140 lb) 10/07/2018 10:25 AM CDT Weight 144.8 cm (4' 9") 10/07/2018 10:25 AM CDT Height 30.3 10/07/2018 10:25 AM CDT Body Mass Index Plan of Treatment Health Maintenance Due Date Last Done Comments Td/Tdap# 1979 COVID-19 Vaccine (1) 1991 Cervical Cancer Screening 04/25/2000 via Pap Smear Influenza Vaccine (#1) 2020 Pneumococcal Vaccine: Aged Out No longer eligib le based on patient's age to Pediatrics (0 to 5 Years) complete this topic and At-Risk Patients (6 to 64 Years) Results Not on filefrom Last 3 Months Advance Directives For more information, please contact: [phone] Patient Vice President Biostatistics Explanation Type Date Recorded Health Care Directive
--- NOTE | 2020-12-15 12:17 | Conscious Sedation/ASA ---
Conscious Sedation Pre-Proced Time 12:00 ASA Score 2 For ASA 3 and 4: Consider anesthesia and medical clearance. Also, for patients with a history of failed moderate sedation consider anesthesia. Airway Lungs Heart ASA score ASA 1: a normal healthy patient ASA 2: a patient with a mild systemic disease (mid diabetes, controlled hypertension, obesity ASA 3: a patient with a severe systemic disease that limits activity (angina, COPD, prior Myocardial infarction) ASA 4: a patient with an incapacitating disease that is a constant threat to life (CHF, renal failure) ASA 5: a moribund patient not expected to survive 24 hrs. (ruptured aneurysm) ASA 6: a declared brain- patient whose organs are being harvested. For emergent operations, add the letter E after the classification Mallampati Classification Grade 2 Sedation Plan Analgesia, Amnesia, Plan communicated to team members, Discussed options with patient/fam, Discussed risks with patient/fam The patient is an appropriate candidate to undergo the planned procedure, sedation, and anesthesia. The patient immediately re-assessed prior to indication. TEREZA TRINH MD Dec 15, 2020 12:17
--- NOTE | 2020-12-15 12:18 | Progress Note-Pre Operative ---
Pre-Operative Progress Note H&P Reviewed The H&P was reviewed, patient examined and no changes noted. Date Seen by Provider: Dec 15, 2020 Time Seen by Provider: 12:00 Date H&P Reviewed: Dec 15, 2020 Time H&P Reviewed: 12:00 Pre-Operative Diagnosis: rectal bleeding TEREZA TRINH MD Dec 15, 2020 12:18
--- NOTE | 2020-12-15 12:19 | Discharge Inst-Surgical ---
D/C Lap Instructions-GAYATHRI Follow Up Activity as tolerated High Fiber Diet 25g or more per day Avoid Alcohol, Caffeine, Spicy [place] and Acid foods. Drink 64 fluid oz or more of fluids per day. Symptoms to Report: Fever over 101 degree F, Nausea/Vomiting If any problems/questions: Contact your physician or go to Emergency Room TEREZA TRINH MD Dec 15, 2020 12:19
[2020-12-15] MEDS ORDERED: LIDOCAINE JELLY 2% 6 ML SYRINGE MM PRN (12:30)
[2020-12-15] MEDS ORDERED: ONDANSETRON 4 MG/2 ML (SDV) Z0FRAN IVP PRN (12:30)
[2020-12-15] MEDS ORDERED: MIDAZOLAM 5 MG/5 ML (VERSED) VIAL IV ONE (12:30)
[2020-12-15] MEDS ORDERED: fentaNYL INJ 100 MCG/2 ML AMP IVP ONE (12:30)
[2020-12-15] MEDS ORDERED: ONDANSETRON 4 MG (ZOFRAN) ORAL DISSOLVE TAB PO PRN (12:30)
[2020-12-15] MEDS ORDERED: NS IV 500 ML 500 ML ONE (12:36)
[2020-12-15] MEDS ORDERED: NS IV 500 ML 500 ML IV ONE (12:45)
[2020-12-15] MEDS ORDERED: fentaNYL INJ 100 MCG/2 ML AMP ONE ×2 (13:19→13:51)
[2020-12-15] MEDS ORDERED: LIDOCAINE JELLY 2% 6 ML SYRINGE ONE (13:20)
[2020-12-15] MEDS ORDERED: MIDAZOLAM 5 MG/5 ML (VERSED) VIAL ONE ×2 (13:20→13:52)
--- NOTE | 2020-12-15 14:18 | Progress Note-Post Operative ---
Post-Operative Progess Note Surgeon (s)/Sliver Chopper (s) Surgeon TEREZA TRINH MD Sliver Chopper: none Pre-Operative Diagnosis rectal bleeding Post-Operative Diagnosis chronic stage 2 ext and int hemorrhoids. Procedure & Operative Findings Date of Procedure 12/15/20 Procedure Performed/Findings colonoscopy Anesthesia Type cs Estimated Blood Loss Estimated blood loss (mL): minimal Specimens/Packing Specimens Removed none TEREZA TRINH MD Dec 15, 2020 14:18
--- NOTE | 2020-12-15 23:46 | OPERATIVE REPORT ---
DATE OF SERVICE: 12/15/2020 ATTENDING PRIMARY CARE PHYSICIAN: Lucinda Beckett APRN PREOPERATIVE DIAGNOSIS: Rectal bleeding. POSTOPERATIVE DIAGNOSIS: Chronic stage II external and internal hemorrhoids. PROCEDURE: Colonoscopy. SURGEON: Tereza Trinh MD. ANESTHESIA: Conscious sedation. ESTIMATED BLOOD LOSS: Minimal. FINDINGS: Chronic stage II external and internal hemorrhoids. DISPOSITION: The patient tolerated the procedure well. INDICATIONS: The patient is a 40-year-old female referred over to us for rectal bleeding. She reports that she has had rectal bleeding on an intermittent basis, approximately three to four times a month. She does not report any diarrhea nor constipation. She does have a history of some form of tumor to the right kidney and underwent a nephrectomy 2 years ago. She is unsure if this was cancer; however, did not have any followup treatment including no chemotherapy. She does not report any family history of colon cancer. DESCRIPTION OF PROCEDURE: The patient was brought to the endoscopy suite, laid in the left lateral decubitus position. After adequate IV pain and sedative medications and conscious sedation anesthesia, a digital rectal examination was performed. Chronic stage II external and internal hemorrhoids were identified, which were not actively edematous nor inflamed and no active bleeding. Of note, vaginal bleeding was identified, which may have been physiologic. Normal sphincter tone was felt and there were no palpable masses. The endoscope was then intubated to the anus and rectum gently insufflated. The endoscope was then advanced through the valves of [place] of the rectum with no polyps or any neoplasms identified. We then proceeded through the sigmoid colon where no diverticulosis identified. The endoscope was then advanced to the remainder of the descending, transverse and ascending colon to the cecum, which were normal. There were no polyps or any neoplasms identified as well as no mucosal inflammatory changes to indicate any active colitis. The endoscope was then slowly withdrawn while taking a second look and suctioning of residual air with no additional findings. The patient tolerated the procedure well. We will recommend the necessary lifestyle and dietary accommodation including adding a fiber supplement, which should equal or exceed 25 grams daily as well as significant amounts of water to promote soft stools on a daily basis. Her stools should be very soft and required no straining upon defecation and she did not have any form once in the toilet water. Job ID: [id number] DocumentID: [id number] Dictated Date: 12/15/2020 14:14:50 Rn [facility] Date: 12/15/2020 23:45:41 Dictated By: TEREZA TRINH MD
== END 2020-12-15 15:25 | disposition home or self-care (01) ==
LOC: ENDO 12:11
PROVIDERS: ATTEND Surgery
DX: K64.4 Residual hemorrhoidal skin tags (principal); K64.1 Second degree hemorrhoids; K62.5 Hemorrhage of anus and rectum; Z90.89 Acquired absence of other organs; Z79.899 Other long term (current) drug therapy
CPT/HCPCS: 84703

== ENCOUNTER → 2020-12-28 | Outpatient (CLI) | payer BC ==
[~2020-12-28] MED LIST changes: +CATHETER FLUSH 10 ML SYR IV PRN; +HOLD METFORMIN - RECEIVED CONTRAST 20 ML VIAL IV SCH; +IOHEXOL 350 MG/ML 100 ML (OMNIPAQUE 350) VIAL IV ONE; +NS 100 ML (IVPB) BAG IV ONE
[2020-12-28 10:28] LABS: HEMATOCRIT 37 % (35-52); HEMOGLOBIN 12.4 g/dL (11.5-16.0); MEAN CORPUSCULAR HEMOGLOBIN 28 pg (25-34); MEAN CORPUSCULAR HGB CONC 33 g/dL (32-36); MEAN CORPUSCULAR VOLUME 86 fL (80-99); MEAN PLATELET VOLUME 9.5 fL (9.0-12.2); PLATELET COUNT 255 10^3/uL (130-400); WHITE BLOOD COUNT 10.3 10^3/uL (4.3-11.0)
[2020-12-28 10:51] LABS: ALBUMIN 3.8 GM/DL (3.2-4.5); BILIRUBIN,TOTAL 0.2 MG/DL (0.1-1.0); CALCIUM 8.6 MG/DL (8.5-10.1); CREATININE SERUM 0.72 MG/DL (0.60-1.30); POTASSIUM 3.9 MMOL/L (3.6-5.0)
--- NOTE | 2020-12-28 13:05 | Diagnostic Imaging Report ---
PROCEDURE: CT abdomen and pelvis with and without contrast. TECHNIQUE: Precontrast acquisitions were acquired through the abdomen and pelvis. Multiple contiguous axial images were obtained through the abdomen and pelvis after the administration of intravenous contrast. Auto Exposure Controls were utilized during the CT exam to meet ALARA standards for radiation dose reduction. INDICATION: History of right renal cell carcinoma. Patient has had gross hematuria for six months. COMPARISON: Correlation is made with prior CT from 11/09/2020. FINDINGS: Lung bases are clear. Liver demonstrates generalized low density consistent with hepatic steatosis. No mass is identified. Gallbladder is surgically absent. There is no biliary ductal dilatation. The pancreas and spleen are unremarkable. There is no adrenal mass. Solitary left kidney appears unremarkable. Left renal collecting system and ureter are unremarkable. The bladder is unremarkable. The right kidney is surgically absent. No residual or recurrent neoplasm in the right renal fossa is identified. The aorta is nonaneurysmal. No central retroperitoneal or mesenteric lymphadenopathy is detected. Small and large bowel loops are normal in caliber. Appendix is unremarkable. There is no free fluid or fluid collection. There is a small left adnexal cyst measuring 2.1 cm. No iliac or inguinal lymphadenopathy is detected. Bony structures are unremarkable. IMPRESSION: 1. Hepatic steatosis. 2. Status post cholecystectomy. 3. Status post right nephrectomy. No residual or recurrent mass is identified. There is no evidence of abdominal or pelvic lymphadenopathy or metastatic disease. Dictated by: Dictated on workstation # [id number]
== END ==
LOC: RAD 10:06
PROVIDERS: ATTEND Surgery
DX: K76.0 Fatty (change of) liver, not elsewhere classified (principal); R31.0 Gross hematuria; Z90.5 Acquired absence of kidney; Z90.49 Acquired absence of other specified parts of digestive tract; Z85.528 Personal history of other malignant neoplasm of kidney
CPT/HCPCS: 36415; 74178; 80053; 85027

== ENCOUNTER → 2021-03-14 | Outpatient (CLI) | payer BC ==
[~2021-03-14] MED LIST changes: -CATHETER FLUSH 10 ML SYR IV PRN; +DICY20TA PO; -DICY20TA10 PO; -HOLD METFORMIN - RECEIVED CONTRAST 20 ML VIAL IV SCH; -IOHEXOL 350 MG/ML 100 ML (OMNIPAQUE 350) VIAL IV ONE; -NS 100 ML (IVPB) BAG IV ONE
== END | disposition home or self-care (01) ==
LOC: PREOP 06:11
PROVIDERS: ATTEND Obstetrics & Gynecology
DX: Z01.818 Encounter for other preprocedural examination (principal)

== ENCOUNTER 2021-03-21 08:00 | Day surgery (SDC) | payer BC ==
[2021-03-21] VITALS (11 sets, daily range): BP systolic 95–132; BP diastolic 68–83
[2021-03-21] MEDS ORDERED: LACTATED RINGERS 1,000 ML IV PRN (08:30)
[2021-03-21 09:29] LABS: BASOPHILS % (AUTO) 0 % (0-10); EOSINOPHILS # (AUTO) 0.2 10^3/uL (0.0-0.3); EOSINOPHILS % (AUTO) 2 % (0-10); HEMATOCRIT 38 % (35-52); HEMOGLOBIN 12.2 g/dL (11.5-16.0); LYMPHOCYTES # (AUTO) 1.6 10^3/uL (1.0-4.0); LYMPHOCYTES % (AUTO) 21 % (12-44); MEAN CORPUSCULAR HEMOGLOBIN 32 pg (25-34); MEAN CORPUSCULAR HGB CONC 32 g/dL (32-36); MEAN CORPUSCULAR VOLUME 98 fL (80-99); MEAN PLATELET VOLUME 10.2 fL (9.0-12.2); MONOCYTES # (AUTO) 0.8 10^3/uL (0.0-1.0); MONOCYTES % (AUTO) 10 % (0-12); NEUTROPHILS # (AUTO) 5.2 10^3/uL (1.8-7.8); NEUTROPHILS % (AUTO) 66 % (42-75); PLATELET COUNT 291 10^3/uL (130-400); WHITE BLOOD COUNT 7.8 10^3/uL (4.3-11.0)
--- NOTE | 2021-03-21 10:03 | Progress Note-Pre Operative ---
Pre-Operative Progress Note H&P Reviewed The H&P was reviewed, patient examined and no changes noted. Date Seen by Provider: Mar 21, 2021 Time Seen by Provider: 09:45 Date H&P Reviewed: Mar 21, 2021 Time H&P Reviewed: 09:45 Pre-Operative Diagnosis: Thickened endometrium, AUB YOSSI SULLIVAN DO Mar 21, 2021 10:03
--- NOTE | 2021-03-21 10:05 | Discharge Inst-Women's Service ---
Discharge Inst-Women's Serv Depart Medication/Instructions New, Converted or Re-Newed RX: Other (take OTC ibuprophen) Problems Reviewed?: Yes Consults/Follow Up Additional Follow Up: Yes Orders/Referrals Dr. Sullivan in 7-10 days Activity Activity: Activity as Tolerated Driving Instructions: You May Drive NO SMOKING: NO SMOKING Nothing Inside Vagina: No Douching, No [place], No Tampons Diet Discharge Diet: No Restrictions Symptoms to Report to : Bleeding Excessive, Pain Increased, Fever Over 101 Degrees F, Vaginal Bleeding Increase, Questions/Concerns For Any Problems or Questions: Contact Your Physician YOSSI SULLIVAN DO Mar 21, 2021 10:05
[2021-03-21] MEDS ORDERED: BUPIVACAINE 0.25% 30 ML (SENSORCAINE) VIAL ONE (10:10)
[2021-03-21] MEDS ORDERED: ONDANSETRON 4 MG/2 ML (SDV) Z0FRAN ONE (10:13)
[2021-03-21] MEDS ORDERED: fentaNYL INJ 100 MCG/2 ML AMP ONE (10:13)
[2021-03-21] MEDS ORDERED: LIDOCAINE PF 2% 5 ML (XYLOCAINE) VIAL ONE (10:13)
[2021-03-21] MEDS ORDERED: MIDAZOLAM 2 MG/2 ML (VERSED) VIAL ONE (10:13)
[2021-03-21] MEDS ORDERED: proPOfol 200 MG/20 ML (DIPRIVAN) VIAL IV ONE (10:13)
[2021-03-21] MEDS ORDERED: D5 LR IV SOLUTION 1,000 ML IV SCH (10:15)
[2021-03-21] MEDS ORDERED: KETOROLAC 30 MG/ML VIAL IVP ONE (10:15)
[2021-03-21] MEDS ORDERED: ONDANSETRON 4 MG/2 ML (SDV) Z0FRAN IVP PRN ×2 (10:15→11:00)
[2021-03-21] MEDS ORDERED: SEVOFLURANE (ULTANE) 15 ML INHAL SOLN ONE (10:47)
[2021-03-21] MEDS ORDERED: KETOROLAC 30 MG/ML VIAL ONE (10:58)
[2021-03-21] MEDS ORDERED: morphine INJ 10 MG/ML 1ML (SYR OR VIAL) IVP ONE (11:00)
--- NOTE | 2021-03-21 12:29 | Anesthesia-General Post-Op ---
General Patient Condition Mental Status/LOC: Same as Preop Cardiovascular: Satisfactory Nausea/Vomiting: Absent Respiratory: Satisfactory Pain: Controlled Complications: Absent Post Op Complications Complications None Follow Up Care/Instructions Patient Instructions None needed. Anesthesia/Patient Condition Patient Condition Patient was seen at the end of her PACU stay and she was doing well, no complaints, stable vital signs, no apparent adverse anesthesia problems. JULIETTE DAILEY DO Mar 21, 2021 12:29
--- NOTE | 2021-03-21 14:44 | OPERATIVE REPORT ---
DATE OF SERVICE: PREOPERATIVE DIAGNOSES: 1. A 40-year-old female with abnormal uterine bleeding. 2. Thickened endometrium on ultrasound. POSTOPERATIVE DIAGNOSES: 1. A 40-year-old female with abnormal uterine bleeding. 2. Thickened endometrium on ultrasound. 3. Endocervical endometrial polyp. PROCEDURE: D and C. SURGEON: Yossi Sullivan DO ANESTHESIA: LMA general. ESTIMATED BLOOD LOSS: Minimal. URINE OUTPUT: 30 mL drained at the end of the procedure. FLUIDS: 800 mL lactated Ringer's solution. FINDINGS: Grossly normal-appearing external female genitalia with a mass noted at the external cervical os consistent with an endometrial or endocervical polyp. SPECIMEN SENT: Endometrial curettings. INDICATIONS FOR PROCEDURE: This 40-year-old female was a patient who had sought care in my office from the [facility] due to thickened endometrium and heavy abnormal bleeding. I discussed with the patient proceeding with D and C and evaluation under anesthesia as endometrial sampling was necessitated due to her age and thickening of the endometrial lining. Risks of the procedure were discussed with the patient in detail and after all her questions were answered, consent was obtained, the patient was taken to the operating room. OPERATIVE REPORT IN DETAIL: Once in the operating room, anesthesia was found to be adequate, placed in dorsal lithotomy position, prepped and draped in normal sterile fashion where a timeout was performed. Straight catheterization was performed. A weighted speculum inserted to the patient's vagina. Right angle retractor was used to visualize the cervix. It was grasped at 12 o'clock position using a long Allis clamp. I then performed paracervical block at 3 and 9 o'clock positions on the cervix. Care was taken to aspirate for injecting 5 mL of 0.25% Marcaine injected at each site. I then gently sound the uterine cavity, was found to be 8 cm. There is an intracervical mass noted, grasped with a ring forceps and twisted until it comes off in one piece. This was sent with endometrial curettings. There was likely an endocervical polyp. I then proceeded with performing a gentle curettage of the endometrium, after which there was little to no bleeding noted from the uterus. The curettage specimen was also sent with the other specimen altogether as endometrial curettings. The patient tolerated the procedure well. All instruments were removed from the patient's vagina. Lap and sponge counts were correct at the end of the procedure. Instrument counts correct as well. Job ID: [id number] DocumentID: [id number] Dictated Date: 03/21/2021 10:51:48 Creative Perfumer Date: 03/21/2021 14:43:20 Dictated By: YOSSI SULLIVAN DO
== END 2021-03-21 13:15 | disposition home or self-care (01) ==
LOC: SDC 08:00
PROVIDERS: ATTEND Obstetrics & Gynecology
DX: N84.0 Polyp of corpus uteri (principal); N93.9 Abnormal uterine and vaginal bleeding, unspecified; D25.0 Submucous leiomyoma of uterus; R93.89 Abnormal findings on diagnostic imaging of other specified body structures; Z90.49 Acquired absence of other specified parts of digestive tract; Z85.528 Personal history of other malignant neoplasm of kidney
CPT/HCPCS: 36415; 84703; 85025; 86850; 86900; 86901; 87081

== ENCOUNTER 2021-07-24 04:22 | Emergency (ER) | payer BC ==
[~2021-07-24] VITALS: Ht 157 cm; Wt 61.1 kg
[2021-07-24 05:00] LABS: BILIRUBIN,URINE NEGATIVE (NEGATIVE); CLARITY,URINE CLOUDY; COLOR,URINE YELLOW; GLUCOSE, URINE (UA) NEGATIVE (NEGATIVE); KETONES,URINE NEGATIVE (NEGATIVE); LEUKOCYTE ESTERASE ,URINE 2+ (NEGATIVE); NITRITE,URINE NEGATIVE (NEGATIVE); PROTEIN,URINE NEGATIVE (NEGATIVE)
[2021-07-24 05:14] LABS: BACTERIA,URINE FEW /HPF
--- NOTE | 2021-07-24 05:14 | ED Abdominal Pain ---
General Chief Complaint: Abdominal/GI Problems Stated Complaint: STOMACH PAIN Nursing Triage Note: C/O ABDOMINAL PAIN/BACK ACHE SINCE SUNDAY. SEEN AT [facility] SUNDAY AND STARTED ON CIPRO WITHOUT IMPROVEMENT. Source of Information: Patient Exam Limitations: Language Barrier (Thai interpretation by a friend) History of Present Illness Date Seen by Provider: July 24, 2021 Time Seen by Provider: 04:46 Initial Comments Patient to the ER by private conveyance chief complaint since Sunday, 4 days prior she is having some pain and a rash with temples across to her back started to get progressively worsening pain wrapping around her left abdomen with a burning sensation. Yesterday she went to [facility] but was not able to see her primary care doctor instead saw someone else and was told maybe she had a UTI and put on ciprofloxacin. Her symptoms have only gotten worse. She thinks she has chickenpox. She denies any fevers chills nausea vomiting or diarrhea. 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 This was done at [facility]. She is not having any dysuria, discharge or foul odor. Allergies and Home Medications Allergies Coded Allergies: No Known Drug Allergies (Unverified , 09/14/18) Patient Home Medication List Home Medication List Reviewed: Yes Review of Systems Review of Systems Constitutional: No chills, No fever, No malaise EENTM: No Blurred Vision, No Double Vision Respiratory: Denies Cough, Denies Shortness of Air Cardiovascular: Denies Chest Pain, Denies Lightheadedness Gastrointestinal: See HPI; Denies Abdomen Distended; Abdominal Pain; Denies Constipated, Denies Diarrhea, Denies Nausea Genitourinary: Denies Burning, Denies Discharge, Denies Drainage Musculoskeletal: No back pain, No joint pain Skin: pruritus, rash (Burning red rash in a dermatomal pattern at the L4-L5 region wrapping around to her left groin from the left flank) Psychiatric/Neurological: Denies Anxiety, Denies Depressed All Other Systems Reviewed Negative Unless Noted: Yes Past Solsqnm-Yjgubr-Cjzdpi Hx Patient Social History Tobacco Use?: No Substance use?: No Alcohol Use?: No Pt feels they are or have been: No Immunizations Up To Date Tetanus Booster (TDap): Unknown Seasonal Allergies Seasonal Allergies: No Past Medical History Surgery/Hospitalization HX: NEPHRECTOMY, CHOLECYSTECTOMY Surgeries: Yes Abdominal, Gallbladder Respiratory: No Currently Using CPAP: No Currently Using BIPAP: No Cardiac: No Neurological: No Reproductive Disorders: No Female Reproductive Disorders: Denies Sexually Transmitted Disease: No HIV/AIDS: No Genitourinary: Yes (KIDNEY CANCER) Gastrointestinal: No Musculoskeletal: No Endocrine: No HEENT: No Loss of Vision: Denies Hearing Impairment: Denies Cancer: Yes Kidney Did You Recieve Any Treatments: Yes What Type of Treatment Did You: Surgical Intervention Psychosocial: No Integumentary: No Blood Disorders: No Adverse Reaction/Blood Tranf: No Family Medical History Hypertension 19 FATHER Physical Exam Vital Signs Vital Signs - First Documented 07/24/21 04:37 Temp 36.1 Pulse 95 Resp 18 B/P (MAP) 116/88 (97) Pulse Ox 95 O2 Delivery Room Air Capillary Refill : Less Than 3 Seconds Height/Weight/BMI Height: 4'9.00" Weight: 140lbs. oz. 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, no motor/sensory deficits, alert, normal mood/affect, oriented x 3 Skin: warm/dry, rash (Erythematous, pruritic, burning, papular confluent rash with some clear fluid-filled vesicles starting at the L4-L5 region and radiating around her left flank to the midline anteriorly without crossing the midline anteriorly or posteriorly.) Progress/Results/Core Measures Results/Orders Lab Results Laboratory Tests Test 07/24/21 04:43 07/24/21 05:15 Range/Units Urine Color YELLOW Urine Clarity CLOUDY Urine pH 6.0 5-9 Urine Specific [place] >=1.030 1.016-1.022 Urine Protein NEGATIVE NEGATIVE Urine Glucose (UA) NEGATIVE NEGATIVE Urine Ketones NEGATIVE NEGATIVE Urine Nitrite NEGATIVE NEGATIVE Urine Bilirubin NEGATIVE NEGATIVE Urine Urobilinogen 0.2 < = 1.0 MG/DL Urine Leukocyte Esterase 2+ H NEGATIVE Urine RBC (Auto) NEGATIVE NEGATIVE Urine RBC NONE /HPF Urine WBC 10-25 H /HPF Urine Squamous Epithelial Cells 2-5 /HPF Urine Crystals NONE /LPF Urine Bacteria FEW H /HPF Urine Casts NONE /LPF Urine Mucus NEGATIVE /LPF Urine Culture Indicated YES White Blood Count 11.4 H 4.3-11.0 10^3/uL Red Blood Count 4.56 3.80-5.11 10^6/uL Hemoglobin 14.5 11.5-16.0 g/dL Hematocrit 44 35-52 % Mean Corpuscular Volume 96 80-99 fL Mean Corpuscular Hemoglobin 32 25-34 pg Mean Corpuscular Hemoglobin Concent 33 32-36 g/dL Red Cell Distribution Width 14.3 10.0-14.5 % Platelet Count 223 130-400 10^3/uL Mean Platelet Volume 9.8 9.0-12.2 fL Immature Granulocyte % (Auto) 1 % Neutrophils (%) (Auto) 82 H 42-75 % Lymphocytes (%) (Auto) 7 L 12-44 % Monocytes (%) (Auto) 8 0-12 % Eosinophils (%) (Auto) 0 0-10 % Basophils (%) (Auto) 0 0-10 % Neutrophils # (Auto) 9.4 H 1.8-7.8 10^3/uL Lymphocytes # (Auto) 0.9 L 1.0-4.0 10^3/uL Monocytes # (Auto) 1.0 0.0-1.0 10^3/uL Eosinophils # (Auto) 0.0 0.0-0.3 10^3/uL Basophils # (Auto) 0.0 0.0-0.1 10^3/uL Immature Granulocyte # (Auto) 0.2 H 0.0-0.1 10^3/uL Sodium Level 136 135-145 MMOL/L Potassium Level 4.1 3.6-5.0 MMOL/L Chloride Level 104 98-107 MMOL/L Carbon Dioxide Level 21 21-32 MMOL/L Anion Gap 11 5-14 MMOL/L Blood Urea Nitrogen 14 7-18 MG/DL Creatinine 0.78 0.60-1.30 MG/DL Estimat Glomerular Filtration Rate 97 BUN/Creatinine Ratio 18 Glucose Level 112 H 70-105 MG/DL Calcium Level 9.0 8.5-10.1 MG/DL Corrected Calcium 9.2 8.5-10.1 MG/DL Total Bilirubin 0.4 0.1-1.0 MG/DL Aspartate Amino Transf (AST/SGOT) 12 5-34 U/L Alanine Aminotransferase (ALT/SGPT) 18 0-55 U/L Alkaline Phosphatase 73 40-136 U/L C-Reactive Protein High Sensitivity 0.65 H 0.00-0.50 MG/DL Total Protein 7.0 6.4-8.2 GM/DL Albumin 3.7 3.2-4.5 GM/DL Lipase 26 8-78 U/L My Orders Orders - JORGE A MASTERSON Ua Culture If Indicated (07/24/21 04:36) Urine Bedside (07/24/21 04:36) Cbc With Automated Diff (07/24/21 04:52) Comprehensive Metabolic Panel (07/24/21 04:52) Hs C Reactive Protein (07/24/21 04:52) Lipase (07/24/21 04:52) Acyclovir Capsule/Tablet (Zovirax Caps (07/24/21 05:15) Gabapentin Capsule/Tablet (Neurontin Cap (07/24/21 05:15) Urine Culture (07/24/21 04:43) Medications Given in ED Current Medications Medications Dose Ordered Sig/Alana Route Start Time Stop Time Status Last Admin Dose Admin Acyclovir 800 mg ONCE ONCE PO 07/24/21 05:15 07/24/21 05:16 DC 07/24/21 05:20 800 MG Gabapentin 600 mg ONCE ONCE PO 07/24/21 05:15 07/24/21 05:16 DC 07/24/21 05:21 600 MG Vital Signs/I&O 07/24/21 04:37 Temp 36.1 Pulse 95 Resp 18 B/P (MAP) 116/88 (97) Pulse Ox 95 O2 Delivery Room Air Blood Pressure Mean: 97 Progress Progress Note #1: Time: 05:14 Progress Note I suspect patient has shingles and this is the single source for all of her pain however we will check some basic labs and urinalysis to prove there is nothing else significant at this time. We will give her some acyclovir and gabapentin for her discomfort. If this does not work we will try hydrocodone in addition. With her history of nephrectomy on the right side NSAIDs are not a good choice. If the rest of her laboratory and urinalysis are normal then would encourage her to discontinue the ciprofloxacin. Progress Note #2: Time: 05:56 Progress Note The patient's pain is not significantly improved although she was sleeping when the provider entered the room. We will give her some hydrocodone in addition to gabapentin and impressed upon her the importance of using acyclovir and continue to use the ciprofloxacin to completion. Follow-up with primary care for management of symptoms in 1 to 2 weeks if necessary. Departure Impression Primary Impression: UTI (urinary tract infection) Qualified Codes: N30.00 - Acute cystitis without hematuria Additional Impression: Shingles rash Qualified Codes: B02.9 - Zoster without complications Disposition: 01 HOME, SELF-CARE Condition: Stable Departure-Patient Inst. Decision time for Depature: 05:57 Referrals: [facility] (PCP) Primary Care Physician JENY CORONADO APRN (Family) Primary Care Physician Patient Instructions: Shingles (DC), Urinary Tract Infection, Adult ED Add. Discharge Instructions: Continue to take the ciprofloxacin that the clinic prescribed to completion for your urinary tract infection. Start taking acyclovir 5 times a day for 10 days to treat the shingles rash. For the pain you can use gabapentin 600 mg tablet up to 3 times a day as necessary. Will cause some drowsiness. If you still have severe pain breaking through then you can use hydrocodone 1 tablet every 4 hours as needed for breakthrough pain. Hydrocodone will cause drowsiness and constipation. I suggest the use of a laxative such as MiraLAX. Follow-up in 1 to 2 weeks with your primary care doctor as necessary to manage your symptoms. Promptly return to the nearest ER for high fevers about 102.5, confusion, weakness or other worrisome symptoms. All discharge instructions reviewed with patient and/or family. Voiced understanding. Scripts Acyclovir (Acyclovir) 800 Mg Tablet 800 MG PO 5XD for 10 Days, #50 TAB 0 Refills Prov: JORGE A MASTERSON 07/24/21 Hydrocodone/Acetaminophen (Hydrocodone-Acetamin 5-325 mg) 5 Mg-325 Mg Tablet 1 TAB PO Q4H PRN for PAIN-MODERATE (5-7), #20 TAB 0 Refills Prov: JORGE A MASTERSON 07/24/21 Gabapentin (Gabapentin) 600 Mg Tablet 600 MG PO TID, #20 TAB 0 Refills Prov: JORGE A MASTERSON 07/24/21 Work/School Note: Work Release Form Date Seen in the Emergency Department: July 24, 2021 Return to Work: Jul 27, 2021 Restrictions: No Restrictions JORGE A MASTERSON July 24, 2021 05:14
[2021-07-24] MEDS ORDERED: GABAPENTIN 600 MG (NEURONTIN) TAB PO ONE (05:15)
[2021-07-24] MEDS ORDERED: ACYCLOVIR 400 MG TABLET (ZOVIRAX) PO ONE (05:15)
[2021-07-24 05:26] LABS: BASOPHILS % (AUTO) 0 % (0-10); EOSINOPHILS % (AUTO) 0 % (0-10); HEMATOCRIT 44 % (35-52); HEMOGLOBIN 14.5 g/dL (11.5-16.0); LYMPHOCYTES # (AUTO) 0.9 10^3/uL (1.0-4.0); LYMPHOCYTES % (AUTO) 7 % (12-44); MEAN CORPUSCULAR HEMOGLOBIN 32 pg (25-34); MEAN CORPUSCULAR HGB CONC 33 g/dL (32-36); MEAN CORPUSCULAR VOLUME 96 fL (80-99); MEAN PLATELET VOLUME 9.8 fL (9.0-12.2); MONOCYTES % (AUTO) 8 % (0-12); NEUTROPHILS # (AUTO) 9.4 10^3/uL (1.8-7.8); NEUTROPHILS % (AUTO) 82 % (42-75); PLATELET COUNT 223 10^3/uL (130-400); WHITE BLOOD COUNT 11.4 10^3/uL (4.3-11.0)
[2021-07-24 05:34] LABS: ALBUMIN 3.7 GM/DL (3.2-4.5); POTASSIUM 4.1 MMOL/L (3.6-5.0)
[2021-07-24 05:38] LABS: BILIRUBIN,TOTAL 0.4 MG/DL (0.1-1.0)
[2021-07-24 05:40] LABS: CREATININE SERUM 0.78 MG/DL (0.60-1.30)
[2021-07-24] MEDS ORDERED: HYDROcodone/APAP 5 MG/325 MG (LORTAB) TAB PO ONE (06:00)
[2021-07-24] MEDS ORDERED: GBPN600T PO (06:01)
[2021-07-24] MEDS ORDERED: ACHD5005 PO (06:01)
[2021-07-24] MEDS ORDERED: ACYC-112 PO (06:01)
[2021-07-24 06:08] VITALS: BP 128/93
== END 2021-07-24 06:08 | disposition home or self-care (01) ==
LOC: EDUNIT# 04:22 → ER 04:24
DX: N30.00 Acute cystitis without hematuria (principal); B02.9 Zoster without complications; Z85.528 Personal history of other malignant neoplasm of kidney; Z90.49 Acquired absence of other specified parts of digestive tract; Z90.5 Acquired absence of kidney
CPT/HCPCS: 36415; 80053; 81000; 83690; 84703; 85025; 86141; 87088; 99283